=== PATIENT | female | born 1950 | race Caucasian/White ===

== ENCOUNTER 2019-03-01 12:40 | Emergency (ER) | payer OTHER ==
[2019-03-01 12:52] VITALS: TEMP 98.6; BMI 22.4
[2019-03-01] MEDS ORDERED: PROPOFOL 200 MG/20 ML VIAL IVPUSH ONE ×8 (13:48→18:46)
--- NOTE | 2019-03-01 13:48 | PDOC ---
History of Present Illness - General Chief Complaint: Pain Stated Complaint: LEFT SHOULDER DISLOCATION Time Seen by Provider: 03/01/19 12:53 History Source: Patient Exam Limitations: No Limitations - History of Present Illness Initial Comments: 03/01/19 13:51 HPI 68 YOF RH dominant with h/o arthritis and skin cancer, presenting with left shoulder dislocation she was struck by elevator door ~2 days ago, since then has had left shoulder "soreness" with bruising and inability to range. no head injury, no LOC, no other traumatic injuries. went to urgent Care [facility] today, Xray showed left anterior shoulder dislocation from disc provided. Allergies: PCN Past Medical History: as documented in EMR/HPI Social history: Lives with family. No tobacco, ETOH or drug use. Surgical history: rotator cuff surgery, skin ca removal Meds: as documented in EMR Family history: noncontributory 03/01/19 16:09 03/01/19 16:11 Past History - Past Medical History Allergies/Adverse Reactions: Allergies Allergy/AdvReac Type Severity Reaction Status Date / Time Penicillins Allergy Verified 03/01/19 12:42 Home Medications: Ambulatory Orders NK [No Known Home Medication] 03/01/19 COPD: No - Suicide/Smoking/Psychosocial Hx Smoking History: Never smoked Have you smoked in the past 12 months: No Information on smoking cessation initiated: No Hx Alcohol Use: No Drug/Substance Use Hx: No Review of Systems - Review of Systems Able to Perform ROS?: Yes Comments:: 03/01/19 13:56 Review of systems Constitutional: no fevers or chills. No weakness HEENT: no headache or dizziness. No congestion. No visual/hearing disturbances. CVS: no cp or syncope. Resp: no sob. No cough. Gastrointestinal: no abdominal pain, nausea or vomiting. Genitourinary: no urinary sx, hematuria. MUSCULOSKELETAL: + joint pain and swelling. . +left shoulder pain. +swelling. No neck or back pain SKIN: +bruising/ecchymosis, no discharge, no rash. No wounds. Hematologic: +bruising/ecchymosis. NEUROLOGIC: No headache, dizziness, LOC or altered mental status. No weakness, numbness or tingling. Psych: no anxiety or depression Allergic/Immunologic: no allergies All other systems reviewed and negative, or as documented in HPI. *Physical Exam - Vital Signs Last Vital Signs Temp Pulse Resp BP Pulse Ox 98.6 F 84 20 147/94 100 03/01/19 12:41 03/01/19 12:41 03/01/19 12:41 03/01/19 12:41 03/01/19 12:41 - Physical Exam Comments: 03/01/19 13:56 Physical exam General: Well appearing, awake and alert, NAD. HEENT: NCAT, PERRL, EOMI, clear conjunctiva, anicteric, moist mucus membranes, clear oropharynx, no oral lesions.. Neck: neck supple, FROM Resp: CTAB, normal and even respirations, no respiratory distress CVS: RRR, no murmurs, 2+ peripheral pulses throughout, no peripheral edema Abdomen: soft, NTND, no rebound or guarding. No CVAT. Back: nontender, normal inspection and ROM MSK: left shoulder unable to range above 90 degrees above head, left shoulder squared off appearance. +tender in the AC joint to deep palpation. 5/5 shoulder shrug strength . deltoid sensation intact; sensation grossly intact in median/radial/ulnar distribution. distal claim attorney strength 5/5. 2+ radialis pulses bilaterally and symmetric. no crepitus Neuro: alert, oriented appropriately; no focal neurologic deficits Psych: Calm and cooperative Skin: warm and well perfused, cap refill <2 sec, Left upper arm with diffuse ecchymosis, mildly tender to palpation in upper arm. 03/01/19 16:09 Procedures - Consent Consent obtained: Verbal, Written, From Patient - Joint Reduction Left Joint Reduction Site: left: Shoulder, Anterior Dislocation Pre-Procedure NV Exam: normal Conscious Sedation: Yes Reduction Attempts: 1 Procedure: Other (Milch and Darek methods, scapular manipulation, Ortiz) Post-Procedure NV Exam: normal Complications: No Post Joint Reduction Film: joint not reduced Splint: No Immobilized: Yes (shoulder immobilizer) Medical Decision Making - Medical Decision Making 03/01/19 14:05 Vital Signs Temp Pulse Resp BP Pulse Ox 98.6 F 84 20 147/94 100 03/01/19 12:41 03/01/19 12:41 03/01/19 12:41 03/01/19 12:41 03/01/19 12:41 VS reviewed, wnl consented for moderate sedation, for closed reduction of left anterior shoulder dislocation, viewed on outside [facility] images NVI, ketofol 0.5-1mg/kg given for procedural sedation quality assurance monitor final. no events, no desats, HD appropriate, mildly hypertensive used afshan gonzalez, closed reduction of anterior dislocation NVI pre and post procedure, no complications post red Xr showed failed reduction, with anterior dislocation still present, no fx seen difficulty encountered likely due to subacute nature, shoulder out x 2 days from inciting event. in shoulder sling ortho cs Dr Card, spoke with MAGDA Ames, will attempt closed reduction with sedation as well. 03/01/19 18:00 - conscious sedation with orthopedics team at bedside. given additional ketofol for sedation, on quality assurance monitor final, no desats, VS normal , maintained airway traction and counter traction performed by Dr Card procedure time: 15 minutes post reduction xr with success, reduced with prox humeral head in joint. shoulder immobilizer placed ortho f/u , Dr Card. *DC/Admit/Observation/Transfer Diagnosis at time of Disposition: Anterior shoulder dislocation Qualifiers: Encounter type: initial encounter Laterality: left Qualified Code(s): S43.015A - Anterior dislocation of left humerus, initial encounter - Discharge Dispostion Disposition: HOME Condition at time of disposition: Improved Decision to Admit order: No - Referrals Referrals: Mars Card MD [Staff Physician] - - Patient Instructions Printed Discharge Instructions: DI for Shoulder Dislocation Additional Instructions: please follow up with Dr Card this week maintain your shoulder immobilizer your shoulder was reduced in the department under conscious sedation. monitor for worsening pain, dislocation, redness, swelling, numbness/tingling/ weakness avoid falls or further trauma to your shoulder. - Post Discharge Activity
[2019-03-01] MEDS ORDERED: KETAMINE HCL 200 MG/20 ML VIAL IVPUSH ONE ×4 (13:50→18:46)
[2019-03-01] MEDS ORDERED: KETAMINE HCL 200 MG/20 ML VIAL ONE (14:21)
[2019-03-01] MEDS ORDERED: PROPOFOL 20 ML ONE (14:21)
[2019-03-01] MEDS ORDERED: morphine CARPU-JECT 4 MG/1 ML DISP.SYRIN IVPUSH ONE (17:46)
[2019-03-01 18:59] VITALS: BP 156/84; PULSE 94
--- NOTE | 2019-03-04 12:16 | CONS ---
CONSULTATION FOR [facility] DATE OF CONSULTATION: 03/01/2019 HISTORY OF PRESENT ILLNESS: This is a 68-year-old female who 2 days prior to coming to the ER had suffered an injury when an elevator door closed onto her. She noted that the shoulder was sore, and she had inability to move the shoulder. She went to an urgent care where she was told she had a shoulder dislocation and referred to the emergency department. She notes no numbness or tingling. She denies any previous history of shoulder dislocation, but does note a history of arthritis. Denies any other areas of pain. PAST MEDICAL HISTORY: Includes skin cancer. MEDICATIONS: Denies. SOCIAL HISTORY: Denies alcohol, tobacco, or drugs. REVIEW OF SYMPTOMS: Negative for fever, chills, nausea, vomiting, or night sweats. PHYSICAL EXAMINATION: General: This is a well-appearing female in no acute distress. She is alert and oriented x3. sitting in hospital stretcher. Musculoskeletal: There is obvious deformity about the shoulder joint. There is a void palpable in the glenoid cavity area. The elbow is nontender. The wrist is nontender. Distally, sensation is intact to light touch. Radial pulse 2+; 5/5 distal motor. Radiographs are reviewed, demonstrating anterior dislocation of the left shoulder. ASSESSMENT: Left glenohumeral dislocation. PLAN: I discussed today's findings with the patient. I advised she has had a shoulder dislocation for 2 days and that sometimes this is not treatable by closed means. That being said, despite the ER having tried once, I recommended a second attempt under conscious sedation. I reviewed the risks of conscious sedation including failed reduction, neurovascular injury, or fracture. We discussed the possibility of recurrent instability. I reviewed medical risks of sedation such as heart attack, stroke, DVT, PE, and . I reviewed the option of operative care should the closed reduction attempt fail. I addressed all the patient's questions and concerns. She voiced understanding and elected to proceed. PROCEDURE: The patient was provided conscious sedation utilizing propofol and ketamine by the emergency room staff. The left arm was then held in an abducted position. A sheet was used to provide counter traction for the torso. Gently, traction was applied and held in place for approximately 10-15 minutes before a clunk was felt and the shoulder was felt to reduce. Post-reduction radiograph demonstrated satisfactory reduction. Patient was placed in a sling. Patient was advised not to use her arm at all. I advised her she is at risk for recurrent dislocation, especially in the initial period. Her post-reduction x-ray does demonstrate a large Hill-Sachs defect. Should the bony defects be large enough, they may warrant surgical care. She should follow up on Friday with repeat radiographs to ensure stable reduction. She should call my office or come back to the ER immediately if she thinks the shoulder pops back out of place. Patient voiced understanding and agreement with the plan. DENNIS HYMAN M.D. [id number]
== END 2019-03-01 20:05 | disposition home or self-care (01) ==
LOC: FER 12:40
PROC: 0RSKXZZ Reposition Left Shoulder Joint, External Approach (ICD-10-PCS; principal; 2019-03-01)
DX: S43.015A Anterior dislocation of left humerus, initial encounter (principal); Z88.0 Allergy status to penicillin; W20.8XXA Other cause of strike by thrown, projected or falling object, initial encounter; Y93.89 Activity, other specified; Y92.89 Other specified places as the place of occurrence of the external cause
CPT/HCPCS: 73030-TC-LT-FY; 99283-25